=== PATIENT | male | born 1955 | race Caucasian/White ===

== ENCOUNTER 2021-11-21 04:33 | Inpatient (IN) | payer OTHER ==
[~2021-11-21] VITALS: Ht 180.3 cm; Wt 125.2 kg
--- NOTE | 2021-11-21 04:33 | NUR ---
66 YR OLD MALE WITH COMPLAINT OF RIGHT SIDED WEAKNESS AFTER FALLING AT HOME AND BEING UNABLE TO STAND. PT IS ALERT AND ORIENTED AND REPORTS HISTORY OF HTN, AND DM II. PT DENIES ANY SOB OR CHEST PAIN. 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 MD AREVALO AT THE BEDSIDE. CODE STROKE INITIATED
[2021-11-21 04:37] VITALS: BP_SYST 192
[2021-11-21] MEDS ORDERED: NACL 0.9% 1,000 ML IV ONE (04:45)
[2021-11-21] MEDS ORDERED: hydrALAZINE HCL 20 MG/ML VIAL IVP ONE (04:45)
[2021-11-21 04:52] LABS: BASOPHILS # (AUTO) 0.1 K/uL (0.0-0.2); BASOPHILS % (AUTO) 2.4 % (0.0-2.0); EOSINOPHILS # (AUTO) 0.1 K/uL (0.0-0.4); EOSINOPHILS % (AUTO) 1.5 % (0.0-4.0); HEMATOCRIT 50.9 % (36-54); HEMOGLOBIN 17.1 g/dL (14.0-18.0); LYMPHOCYTES % (AUTO) 18.7 % (20.5-51.5); MEAN CORPUSCULAR HEMOGLOBIN 30 pg (27-31); MEAN CORPUSCULAR HGB CONC 34 % (32-36); MEAN CORPUSCULAR VOLUME 89 fL (79.0-98.0); MONOCYTES # (AUTO) 0.3 K/uL (0.0-1.0); MONOCYTES % (AUTO) 5.5 % (1.7-9.3); NEUTROPHILS # (AUTO) 3.9 K/uL (1.8-7.7); NEUTROPHILS % (AUTO) 71.9 % (40.0-70.0); PLATELET COUNT (AUTO) 215 K/uL (130-430); RED BLOOD CELL COUNT(AUTO) 5.74 MIL/uL (4.2-6.2); RED CELL DISTRIBUTION WIDTH 13.4 % (9.0-15.0); WHITE BLOOD COUNT (AUTO) 5.4 K/uL (4.8-10.8)
[2021-11-21 05:09] LABS: ANION GAP 7 (5-15); CALCIUM 9.1 mg/dL (8.4-11.0); CHLORIDE 104 mmol/L (98-107); CREATININE 1.21 mg/dL (0.55-1.30); GLUCOSE 239 mg/dL (70-99); POTASSIUM 3.2 mmol/L (3.5-5.1); SODIUM SERUM 139 mmol/L (136-145); UREA NITROGEN, BLOOD 17 mg/dL (8-21)
[2021-11-21 05:10] LABS: GFR AFRICAN AMERICAN 77 mL/min (>90)
[2021-11-21 05:11] LABS: INR 0.9 (0.80-1.20); PROTHROMBIN TIME 9.4 SECS (9.5-12.5)
--- NOTE | 2021-11-21 05:16 | NUR ---
TELEMED VIDEO MONITOR PLACED AT THE BEDSIDE
[2021-11-21 05:18] LABS: ALANINE AMINOTRANSFERASE 45 U/L (12-78); ASPARTATE AMINOTRANSFERASE 26 U/L (10-37); TOTAL BILIRUBIN 0.4 mg/dL (0.0-1.0)
--- NOTE | 2021-11-21 05:24 | NUR ---
PT REPORTS BEING PRESCRIBED MEDICATIONS FOR THN AND DM II. PT REPORTS NOT TAKING THE MEDICATIONS FOR MORE THAN ONE YEAR. MADE AWARE
[2021-11-21] MEDS ORDERED: KCL 20 mEq in 100 mL (PREMIX) 100 ML IV ONE (05:30)
--- NOTE | 2021-11-21 06:06 | NUR ---
PT URINE SENT TO LAB
[2021-11-21] MEDS ORDERED: IOHEXOL 350 mgI/mL, 150 ML INFUS..BTL IV ONE (06:14)
[2021-11-21 06:19] LABS: BILIRUBIN,URINE NEGATIVE (NEGATIVE); BLOOD, URINE NEGATIVE (NEGATIVE); CLARITY/URINE CLEAR (CLEAR); COLOR,URINE YELLOW (YELLOW); GLUCOSE,URINE 3+ (NEGATIVE); KETONES,URINE NEGATIVE (NEGATIVE); LEUKOCYTE ESTERASE ,URINE NEGATIVE (NEGATIVE); NITRITE, URINE NEGATIVE (NEGATIVE); PROTEIN URINE NEGATIVE (NEGATIVE)
--- NOTE | 2021-11-21 06:24 | NUR ---
PT CONSENT SIGNED AND OBTAINED FOR CT SCAN WITH CONTRAST
[2021-11-21 06:30] LABS: BARBITURATE, URINE NEGATIVE (NEG <=200); BENZODIAZEPINE, URINE NEGATIVE (NEG <=150); CANNABINOID, URINE NEGATIVE (NEG <=50); COCAINE, URINE NEGATIVE (NEG <=150); METHAMPHETAMINES SCREEN,URINE NEGATIVE (NEG <=500); OPIATE, URINE NEGATIVE (NEG <=100); PHENCYCLIDINE SCREEN,URINE NEGATIVE (NEG <=25); UR TRICYCLIC ANTIDEPRESSANTS NEGATIVE (NEG <=300); URINE AMPHETAMINE NEGATIVE (NEG <=500); URINE METHADONE NEGATIVE (NEG <=200); URINE OXYCODONE SCREEN NEGATIVE (NEG <=100); URINE PROPOXYPHENE SCREEN NEGATIVE (NEG <=300)
--- NOTE | 2021-11-21 06:41 | NUR ---
NEUOROLOGIST TELEMED EVALUATION AND PT INTERVIEW COMPLETED WITH RN AT THE BEDSIDE
--- NOTE | 2021-11-21 06:59 | NUR ---
COVID SWAB OBTAINED AND SENT TO LAB FOR PT ADMISSION
--- NOTE | 2021-11-21 07:26 | NUR ---
REPORT RECEIVED FROM TODD AHUJA FOR CONTINUING CARE
--- NOTE | 2021-11-21 07:30 | NUR ---
PT IS AWAKE IN BED, AAOX4, VSS, NO DISTRESS NOTED.
[2021-11-21] MEDS ORDERED: ASPIRIN 325 MG TABLET PO ONE (07:45)
[2021-11-21] MEDS ORDERED: cloNIDine HCL 0.1 MG TABLET PO PRN (08:30)
--- NOTE | 2021-11-21 08:35 | NUR ---
Patient will be admitted to care of . Admitted to TELE unit. Will go to room 118A. Belongings list completed. Complete and up to date summary report printed. SBAR report to be given at bedside with opportunity for questions.
--- NOTE | 2021-11-21 08:35 | NUR ---
Admit bed requested Patient will be admitted to care of . Admitted to TELE unit. Diagnosis TIA Inpatient (Yes or No) YES Observation (Yes or No) NO Orientation concerns or request close to nursing station (Yes or No) NO Covid Status NEGATIVE On vent or bipap NO Isolation requirements NO Needs a sitter NO From Home (Yes or if No enter name of facility) YES Requires Dialysis (Yes or No) NO Med Rec Completed (Yes of No) YES
--- NOTE | 2021-11-21 08:35 | NUR ---
Note bridgett in EDM - 11/21/21 at 0948 by [email or web address] Patient will be admitted to care of DR. THOMPSON. Admitted to [] unit. Will go to room []. Belongings list completed. Complete and up to date summary report printed. SBAR report to be given at bedside with opportunity for questions.
[2021-11-21] MEDS ORDERED: amLODIPine BESYLATE 10 MG TABLET PO SCH (09:00)
[2021-11-21] MEDS: CARVEDILOL 6.25 MG TABLET (COREG) PO SCH ×2 (09:00→21:58)
--- NOTE | 2021-11-21 10:17 | NUR ---
Received patient in bed resting comfortably, AAOX4, able to express needs. No c/o pain or discomfort. Respirations are non-labored. Skin is clean, warm and dry to touch. IV access is patent, dry and intact, No s/sx of redness or swelling observed. Bed is locked in lowest position, call light in reach. Nurse will continue care and monitor of changes in status.
[2021-11-21] MEDS ORDERED: DEXTROSE 50%-WATER 50 ML DISP.SYRIN IVP PRN (10:30)
[2021-11-21] MEDS ORDERED: D5W 1,000 ML IV PRN (10:30)
[2021-11-21] MEDS ORDERED: GLUCOSE (DEXTROSE) ORAL GEL -Adults PO PRN (10:30)
[2021-11-21 12:28] VITALS: BP_SYST 104
--- NOTE | 2021-11-21 12:42 | NUR ---
patient in bed resting comfortably, No c/o pain or discomfort. Respirations are non-labored. Skin is clean, warm and dry to touch. IV access is patent, dry and intact, No s/sx of redness or swelling observed. Bed is locked in lowest position, call light in reach. Nurse will continue care and monitor of changes in status.
--- NOTE | 2021-11-21 18:42 | NUR ---
Patient in bed resting comfortably, No c/o pain or discomfort. Respirations are non-labored. Skin is clean, warm and dry to touch. IV access is patent, dry and intact, No s/sx of redness or swelling observed. Bed is locked in lowest position, call light in reach. Nurse will endorse patient to rn night nurse for continued care.
[2021-11-21] MEDS: metFORMIN HCL 500 MG TABLET PO SCH (19:30)
[2021-11-21 20:00] VITALS: BP_SYST 150
--- NOTE | 2021-11-21 21:30 | NUR ---
Paged Dr. Garza
--- NOTE | 2021-11-21 21:39 | NUR ---
Dr. Garza/New Order Spoke with Dr. Garza, received new order for [facility] with readback and confirmation.
[2021-11-21] MEDS: ENOXAPARIN SODIUM 40 MG/0.4 ML SYRINGE SUBCUT SCH (22:03)
[2021-11-21] MEDS: INSULIN REGULAR, HUMAN 100 UNITS/ML, 10 ML VIAL (humuLIN R) SUBCUT PRN (22:17)
[2021-11-22 00:30] VITALS: BP_SYST 146
--- NOTE | 2021-11-22 04:43 | NUR ---
Consultation Paged Reason for consult: TIA Was consult called: Y Person who was notified: Dr. Silva text message Consulting Physician: Chacorta Pinon Ordering Physician: Dr. Garza
[2021-11-22 06:47] LABS: BASOPHILS # (AUTO) 0.1 K/uL (0.0-0.2); BASOPHILS % (AUTO) 0.8 % (0.0-2.0); EOSINOPHILS # (AUTO) 0.1 K/uL (0.0-0.4); EOSINOPHILS % (AUTO) 2.1 % (0.0-4.0); HEMATOCRIT 45.1 % (36-54); HEMOGLOBIN 15.4 g/dL (14.0-18.0); LYMPHOCYTES # (AUTO) 1.6 K/uL (1.0-5.5); LYMPHOCYTES % (AUTO) 25.1 % (20.5-51.5); MEAN CORPUSCULAR HEMOGLOBIN 30 pg (27-31); MEAN CORPUSCULAR HGB CONC 34 % (32-36); MEAN CORPUSCULAR VOLUME 89 fL (79.0-98.0); MONOCYTES # (AUTO) 0.7 K/uL (0.0-1.0); MONOCYTES % (AUTO) 10.1 % (1.7-9.3); NEUTROPHILS % (AUTO) 61.9 % (40.0-70.0); PLATELET COUNT (AUTO) 201 K/uL (130-430); RED BLOOD CELL COUNT(AUTO) 5.09 MIL/uL (4.2-6.2); RED CELL DISTRIBUTION WIDTH 13.2 % (9.0-15.0); WHITE BLOOD COUNT (AUTO) 6.5 K/uL (4.8-10.8)
--- NOTE | 2021-11-22 07:30 | NUR ---
Closing Patient resting in bed, unlabored breathing on room air. No complaint of pain. NIHSS of 4, consistent with documentation in ER. Speech clear and appropriate, facial movements symmetrical. Patient reported numbness to right side slightly improved this morning but still present. Sensation present but decreased to right side. Able to move right arm and leg with some drift - drifted downward but did not hit bed during NIH stroke scale. Given 2 units insulin before breakfast for blood sugar 194. Metformin held due to recent IV contrast administration. Call light in reach, fall and safety precautions maintained.
[2021-11-22] MEDS: INSULIN REGULAR, HUMAN 100 UNITS/ML, 10 ML VIAL (humuLIN R) SUBCUT PRN ×4 (07:44→21:15)
[2021-11-22 08:00] VITALS: BP_SYST 167
[2021-11-22 08:00] LABS: CREATININE 1.08 mg/dL (0.55-1.30); POTASSIUM 3.5 mmol/L (3.5-5.1)
[2021-11-22] MEDS: metFORMIN HCL 500 MG TABLET PO SCH ×2 (08:00→18:00)
--- NOTE | 2021-11-22 08:00 | NUR ---
Initial Notes Patient is awake, alert and oriented. Patient in bed, vital signs taken. Patient states that he feels better than yesterday, slight tingling of right side upper and lower extremity. Has good range of motion. Denies any chest pain or distress. Safety precautions in place and call light within reach.
[2021-11-22] MEDS: ASPIRIN 81 MG TAB.CHEW PO SCH (08:39)
[2021-11-22] MEDS: LISINOPRIL 10 MG TABLET (PRINIVIL) PO SCH (08:40)
[2021-11-22] MEDS: CARVEDILOL 6.25 MG TABLET (COREG) PO SCH ×2 (08:41→21:12)
[2021-11-22 10:30] VITALS: BP_SYST 165
[2021-11-22 11:31] VITALS: BP_SYST 157
--- NOTE | 2021-11-22 12:00 | NUR ---
Notes Patient in bed, resting, using his phone. Patient denies any pain or distress. Safety precautions in place and call light within reach.
[2021-11-22 14:43] VITALS: BP_SYST 112
[2021-11-22] MEDS ORDERED: CLOPIDOGREL BISULFATE 75 MG TABLET PO ONE (16:00)
--- NOTE | 2021-11-22 16:03 | NUR ---
SPEECH THERAPY CONSULT WAS CALLED TO [facility], RE: SWALLOWING EVAL. SPOKE TO CAROL.
--- NOTE | 2021-11-22 16:52 | NUR ---
PT WAS SEEN FOR DYSPHAGIA. PT WAS ABLE TO SAFELY SWALLOW REGULAR DIET WITH THIN LIQUID. RECOMMENDATION REGULAR DIET WITH THIN LIQUID
--- NOTE | 2021-11-22 18:40 | NUR ---
Closing Notes Patient is in bed, eating dinner, at a High Alaniz's position. No complains of pain or distress. Family at bedside. Call light within reach and safety precautions in place.
[2021-11-22 20:10] VITALS: BP_SYST 133
[2021-11-22] MEDS: ENOXAPARIN SODIUM 40 MG/0.4 ML SYRINGE SUBCUT SCH (21:10)
[2021-11-23 00:43] VITALS: BP_SYST 132
[2021-11-23] MEDS: INSULIN REGULAR, HUMAN 100 UNITS/ML, 10 ML VIAL (humuLIN R) SUBCUT PRN ×4 (06:40→20:54)
[2021-11-23 07:03] LABS: BASOPHILS % (AUTO) 0.8 % (0.0-2.0); EOSINOPHILS # (AUTO) 0.2 K/uL (0.0-0.4); EOSINOPHILS % (AUTO) 2.6 % (0.0-4.0); HEMATOCRIT 45.3 % (36-54); HEMOGLOBIN 15.3 g/dL (14.0-18.0); LYMPHOCYTES # (AUTO) 1.7 K/uL (1.0-5.5); MEAN CORPUSCULAR HEMOGLOBIN 30 pg (27-31); MEAN CORPUSCULAR HGB CONC 34 % (32-36); MEAN CORPUSCULAR VOLUME 89 fL (79.0-98.0); MONOCYTES # (AUTO) 0.5 K/uL (0.0-1.0); MONOCYTES % (AUTO) 8.9 % (1.7-9.3); NEUTROPHILS # (AUTO) 3.6 K/uL (1.8-7.7); NEUTROPHILS % (AUTO) 59.7 % (40.0-70.0); PLATELET COUNT (AUTO) 195 K/uL (130-430); RED BLOOD CELL COUNT(AUTO) 5.11 MIL/uL (4.2-6.2); RED CELL DISTRIBUTION WIDTH 13.2 % (9.0-15.0)
--- NOTE | 2021-11-23 07:10 | NUR ---
HANDOFF WITH TODD ANDRADE. LAVERNE BRADY RN
[2021-11-23 07:40] LABS: CALCIUM 8.2 mg/dL (8.4-11.0); CREATININE 1.07 mg/dL (0.55-1.30); POTASSIUM 3.6 mmol/L (3.5-5.1)
[2021-11-23 08:00] VITALS: BP_SYST 159
[2021-11-23] MEDS: metFORMIN HCL 500 MG TABLET PO SCH ×2 (08:00→17:02)
--- NOTE | 2021-11-23 08:00 | NUR ---
INITIAL NOTE Patient in bed, awake, alert, and oriented. Vital signs obtained. No pain or distress claimed. Patient aware to call for assistance. Safety precautions in place and call light near patient.
[2021-11-23] MEDS: ASPIRIN 81 MG TAB.CHEW PO SCH (08:34)
[2021-11-23] MEDS: LISINOPRIL 10 MG TABLET (PRINIVIL) PO SCH (08:36)
[2021-11-23] MEDS: CLOPIDOGREL BISULFATE 75 MG TABLET PO SCH (08:36)
[2021-11-23] MEDS: CARVEDILOL 6.25 MG TABLET (COREG) PO SCH ×2 (08:50→20:49)
[2021-11-23 12:00] VITALS: BP_SYST 144
--- NOTE | 2021-11-23 12:00 | NUR ---
Patient states feels good. Numbness and tingling of the RUE and RLE same as yesterday and this plastic products sales representative. Vital signs obtained, pt. states no pain or distress. Safety precautions in place. Call light within reach.
[2021-11-23 16:00] VITALS: BP_SYST 140
--- NOTE | 2021-11-23 16:00 | NUR ---
Notes Patient is in bed, watching TV. Family is at bedside. Reports no pain. No distress noted. Call light within reach and safety precautions in place.
--- NOTE | 2021-11-23 18:40 | NUR ---
Closing Notes Patient is in bed, finished eating dinner. Patient is comfortable. No complaints of pain or distress noted. Safety precautions in place and call light within reach.
[2021-11-23] MEDS: ENOXAPARIN SODIUM 40 MG/0.4 ML SYRINGE SUBCUT SCH (20:49)
[2021-11-23 20:50] VITALS: BP_SYST 182
[2021-11-23 22:36] VITALS: BP_SYST 159
[2021-11-24 00:18] VITALS: BP_SYST 148
[2021-11-24] MEDS: INSULIN REGULAR, HUMAN 100 UNITS/ML, 10 ML VIAL (humuLIN R) SUBCUT PRN ×4 (06:08→20:39)
--- NOTE | 2021-11-24 06:56 | NUR ---
Handoff with TODD Ramirez. Yg Quiles RN
[2021-11-24 08:30] VITALS: BP_SYST 144
--- NOTE | 2021-11-24 08:30 | NUR ---
Opening Note Patient is awake laying in bed watching TV. No apparent distress. Patient denies pain. Vitals as charted. Call light within reach. Safety and fall precautions in place. All needs met.
[2021-11-24] MEDS: ASPIRIN 81 MG TAB.CHEW PO SCH (09:42)
[2021-11-24] MEDS: CARVEDILOL 6.25 MG TABLET (COREG) PO SCH ×2 (09:43→20:25)
[2021-11-24] MEDS: metFORMIN HCL 500 MG TABLET PO SCH ×2 (09:43→18:07)
[2021-11-24] MEDS: LISINOPRIL 10 MG TABLET (PRINIVIL) PO SCH (09:44)
[2021-11-24] MEDS: CLOPIDOGREL BISULFATE 75 MG TABLET PO SCH (09:44)
[2021-11-24 12:24] VITALS: BP_SYST 151
--- NOTE | 2021-11-24 13:40 | NUR ---
NOTE Patient is awake, laying in bed watching a baseball game on his phone. Plugged in patient cell phone senior radiation protection technician and placed within patient. Provided fresh ice water. Call light within reach. Safety and fall precautions in place. All needs met.
[2021-11-24 16:19] VITALS: BP_SYST 146
--- NOTE | 2021-11-24 18:31 | NUR ---
Closing Notes Patient is awake, eating dinner. No apparent distress noted. Patient denies pain. Call light within reach. Safety and fall precautions in place. Will endorse care to security shift supervisor RN.
[2021-11-24 20:04] VITALS: BP_SYST 128
[2021-11-24] MEDS: ENOXAPARIN SODIUM 40 MG/0.4 ML SYRINGE SUBCUT SCH (20:26)
[2021-11-25] VITALS (8 sets, daily range): BP systolic 126–161
[2021-11-25] MEDS: INSULIN REGULAR, HUMAN 100 UNITS/ML, 10 ML VIAL (humuLIN R) SUBCUT PRN ×4 (06:50→20:27)
--- NOTE | 2021-11-25 07:16 | NUR ---
Handoff with TODD Ramirez. Yg Quiles RN
--- NOTE | 2021-11-25 08:30 | NUR ---
Opening Note Patient laying in bed watching television on his phone. A/O x4. Vitals as charted. No apparent distress noted. Patient denies pain. Call light within reach. Safety and fall precautions in place. All needs met.
[2021-11-25] MEDS: metFORMIN HCL 500 MG TABLET PO SCH ×2 (08:36→17:24)
[2021-11-25] MEDS: ASPIRIN 81 MG TAB.CHEW PO SCH (08:36)
[2021-11-25] MEDS: CLOPIDOGREL BISULFATE 75 MG TABLET PO SCH (08:36)
[2021-11-25] MEDS: CARVEDILOL 6.25 MG TABLET (COREG) PO SCH ×2 (08:37→20:19)
[2021-11-25] MEDS: LISINOPRIL 10 MG TABLET (PRINIVIL) PO SCH (08:37)
--- NOTE | 2021-11-25 09:55 | NUR ---
Discharge Planning: DCP faxed pt referral to [facility], [facility], [facility]. DCP spoke to Mallorie at [facility] P#[phone] F#[phone] auth will be given to accepting facility. DCP to follow up Addendum: 11/25/21 at 1615 by Teresa Morris DP DCP followed up with pt referral to [facility] [phone] pt accepted to 7. DCP made Mallorie at [facility] [phone], of accepting [facility]. For transport auth#[id number] . Addendum: 11/25/21 at 1640 by Teresa Morris DP [facility] [phone] pt accepted to [facility]. DCP arrange transport with [facility] [phone] BLS WILL CALL auth#[id number]. Patient packet taken to nurse station.
--- NOTE | 2021-11-25 11:12 | NUR ---
MRI: TO MRI VIA WHEELCHAIR.STABLE.
--- NOTE | 2021-11-25 11:40 | NUR ---
BACK FROM MRI: PATIENT BACK FROM MRI VIA WHEELCHAIR IN STABLE CONDITION.
--- NOTE | 2021-11-25 12:35 | NUR ---
CM: Informed pt and his cousin/Rahul at bedside that [facility] facility that accept him. They chose [facility]. Rahul stated his family was there and liked the facility, he recommended for the pt as well. The pt agreed with [facility] , dr Garza made aware. The pt may be dc once cleared by Neuro and has the MRI result. -- TODD Gonzalez made aware.
--- NOTE | 2021-11-25 13:14 | NUR ---
Neuro Page Critical Result Spoke with Yayo from Radiology. He provided critical MRI result of stroke. I paged Dr. Silva.
--- NOTE | 2021-11-25 13:20 | NUR ---
Dr. Silva Called Back Spoke with Dr. Silva, provided critical MRI result of stroke. Dr. Silva asked if patient is on aspirin, I stated yes, patient is on 81mg. No new orders given.
--- NOTE | 2021-11-25 18:40 | NUR ---
NEURO CLEARANCE: DR FUENTES WENT TO PATIENT'S ROOM AND DISCUSSED WITH PATIENT MRI RESULTS.CLEARED TO TRANSFER TO [facility] ORDERED.
--- NOTE | 2021-11-25 18:41 | NUR ---
Closing Notes Patient is in bed awake, watching television on his phone. No apparent distress noted. Call light within reach. Safety and fall precautions in place. All needs met. Will endorse care to retail shift supervisor RN.
--- NOTE | 2021-11-25 19:15 | NUR ---
OPENING NOTES Patient resting in bed - no s/s pain or distress noted. Respirations even and unlabored - head of bed elevated. IV site patent - no s/s redness, infection, or infiltration. Bed locked and in lowest position. Call light within reach - bed alarm on.
[2021-11-25] MEDS: ENOXAPARIN SODIUM 40 MG/0.4 ML SYRINGE SUBCUT SCH (20:21)
--- NOTE | 2021-11-25 21:00 | NUR ---
Approximately at this time unit assembler Huong informs me that [facility] to come pickup patient for transfer to [place] at 2300
--- NOTE | 2021-11-25 22:00 | NUR ---
At this time [facility] calls me to say they will pickup patient ETA [id number]. Report already given to TODD Chao at [facility] at this time to notify them of possible pickup at latest 2299.
--- NOTE | 2021-11-25 23:12 | NUR ---
Patient escorted out by two executive services administrator stable at this time. Transport via gurney to [facility] - report already given.
== END 2021-11-25 23:31 | DRG 65 ==
LOC: SED 04:33 → STU 08:28
PROVIDERS: ADMIT Family Medicine; ATTEND Family Medicine
DX: I63.9 Cerebral infarction, unspecified (principal); G81.91 Hemiplegia, unspecified affecting right dominant side; E87.6 Hypokalemia; E11.9 Type 2 diabetes mellitus without complications; I10 Essential (primary) hypertension; Z20.822 Contact with and (suspected) exposure to COVID-19
CPT/HCPCS: 36415; 70450-TC; 70496; 70498; 70551; 71045; 76376; 80048; 80053; 80061; 80307; 81003; 82962; 83036; 83735; 84484; 85025; 85610-TC; 85730-TC; 86886; 86900; 86901; 92610-GN; 93880; 96374; 97116-GP; 97530-GP; 99291; G0378; J0360; J1650; J1815; J3480; Q9967

== ENCOUNTER 2023-05-17 16:41 | Inpatient (IN) | payer OTHER ==
[~2023-05-17] VITALS: Ht 182.9 cm; Wt 124.3 kg
[2023-05-17 16:52] VITALS: BP_SYST 166; PULSE 77; RESP 16; TEMP 98.2; O2SAT 98
[2023-05-17] MEDS ORDERED: ACETAMINOPHEN 500 MG TABLET PO ONE (17:15)
[2023-05-17 19:09] LABS: BASOPHILS % (AUTO) 0.7 % (0.0-2.0); EOSINOPHILS # (AUTO) 0.1 K/uL (0.0-0.4); HEMATOCRIT 45.6 % (36-54); HEMOGLOBIN 14.9 g/dL (14.0-18.0); LYMPHOCYTES # (AUTO) 1.3 K/uL (1.0-5.5); LYMPHOCYTES % (AUTO) 20.1 % (20.5-51.5); MEAN CORPUSCULAR HEMOGLOBIN 30 pg (27-31); MEAN CORPUSCULAR HGB CONC 33 % (32-36); MEAN CORPUSCULAR VOLUME 91 fL (79.0-98.0); MONOCYTES # (AUTO) 0.6 K/uL (0.0-1.0); MONOCYTES % (AUTO) 9.6 % (1.7-9.3); NEUTROPHILS # (AUTO) 4.2 K/uL (1.8-7.7); NEUTROPHILS % (AUTO) 67.6 % (40.0-70.0); PLATELET COUNT (AUTO) 217 K/uL (130-430); RED BLOOD CELL COUNT(AUTO) 5.03 MIL/uL (4.2-6.2); RED CELL DISTRIBUTION WIDTH 13.4 % (9.0-15.0); WHITE BLOOD COUNT (AUTO) 6.2 K/uL (4.8-10.8)
[2023-05-17 19:25] LABS: ANION GAP 9 (5-15); CALCIUM 8.7 mg/dL (8.4-11.0); CARBON DIOXIDE 28 mmol/L (23-29); CHLORIDE 107 mmol/L (98-107); CREATININE 1.21 mg/dL (0.55-1.30); GFR AFRICAN AMERICAN 77 mL/min (>90); GLUCOSE 100 mg/dL (74-106); POTASSIUM 3.8 mmol/L (3.5-5.1); SODIUM SERUM 144 mmol/L (136-145); UREA NITROGEN, BLOOD 22 mg/dL (8-21)
[2023-05-17 19:26] LABS: PROTHROMBIN TIME 10.3 SECS (9.5-12.5)
[2023-05-17 19:31] LABS: GFR NON AFRICAN-AMERICAN 63 mL/min (>90)
[2023-05-17 19:32] LABS: ALANINE AMINOTRANSFERASE 31 U/L (12-78); ALBUMIN 3.8 g/dL (3.4-4.8); ASPARTATE AMINOTRANSFERASE 15 U/L (10-37); TOTAL BILIRUBIN 0.6 mg/dL (0.0-1.0); TOTAL PROTEIN, SERUM 7.3 g/dL (6.4-8.3)
[2023-05-18 01:34] LABS: BILIRUBIN,URINE NEGATIVE (NEGATIVE); BLOOD, URINE NEGATIVE (NEGATIVE); CLARITY/URINE CLOUDY (CLEAR); COLOR,URINE YELLOW (YELLOW); GLUCOSE,URINE NEGATIVE (NEGATIVE); KETONES,URINE NEGATIVE (NEGATIVE); LEUKOCYTE ESTERASE ,URINE 2+ (NEGATIVE); NITRITE, URINE NEGATIVE (NEGATIVE); PROTEIN URINE NEGATIVE (NEGATIVE); UROBILINOGEN,URINE 0.2 (0.2-1.0)
[2023-05-18] MEDS ORDERED: hydrALAZINE HCL 20 MG/ML VIAL IVP PRN (01:45)
[2023-05-18] MEDS ORDERED: ASPIRIN 81 MG TAB.CHEW PO ONE (01:45)
[2023-05-18 01:57] LABS: BACTERIA,URINE MODERATE /HPF (None Seen); RBC,URINE 0-3 /HPF (0-3); WBC,URINE 50-80 /HPF (0-3)
[2023-05-18] MEDS ORDERED: cefTRIAXone 1 GM IVPB PREMIX 50 ML IV ONE (02:15)
[2023-05-18] MEDS ORDERED: ONDANSETRON HCL 4 MG/2 ML VIAL IVP PRN (03:00)
[2023-05-18] MEDS ORDERED: ACETAMINOPHEN 500 MG TABLET PO PRN (03:00)
[2023-05-18] MEDS ORDERED: HYDROcodone/ACETAMIN 5-325 MG TAB (NORCO/ VICODIN) PO PRN (03:00)
[2023-05-18 08:00] VITALS: BP_SYST 166; PULSE 90; RESP 18; TEMP 97.8; O2SAT 98
[2023-05-18 08:07] VITALS: BP_SYST 166; PULSE 97; RESP 17; TEMP 97.8; O2SAT 98
[2023-05-18] MEDS: LISINOPRIL 10 MG TABLET (PRINIVIL) PO SCH (08:43)
[2023-05-18] MEDS: ASPIRIN 81 MG TAB.CHEW PO SCH (08:43)
[2023-05-18 11:30] VITALS: BP_SYST 167; PULSE 83; RESP 19; TEMP 98.4; O2SAT 96
[2023-05-18] MEDS: cefTRIAXone 1 GM in D5W 50 ML IV SCH (14:24)
[2023-05-18 17:30] VITALS: BP_SYST 159; PULSE 83; RESP 18; TEMP 98.9; O2SAT 98
[2023-05-18 20:08] VITALS: BP_SYST 160; PULSE 78; RESP 16; TEMP 97.6; O2SAT 95
[2023-05-19 00:40] VITALS: BP_SYST 118; PULSE 68; RESP 17; TEMP 98.1; O2SAT 100
[2023-05-19 04:59] LABS: BASOPHILS # (AUTO) 0.1 K/uL (0.0-0.2); BASOPHILS % (AUTO) 0.8 % (0.0-2.0); EOSINOPHILS # (AUTO) 0.2 K/uL (0.0-0.4); EOSINOPHILS % (AUTO) 3.1 % (0.0-4.0); HEMATOCRIT 42.8 % (36-54); HEMOGLOBIN 13.8 g/dL (14.0-18.0); LYMPHOCYTES # (AUTO) 1.8 K/uL (1.0-5.5); LYMPHOCYTES % (AUTO) 27.1 % (20.5-51.5); MEAN CORPUSCULAR HEMOGLOBIN 29 pg (27-31); MEAN CORPUSCULAR HGB CONC 32 % (32-36); MEAN CORPUSCULAR VOLUME 90 fL (79.0-98.0); MONOCYTES # (AUTO) 0.8 K/uL (0.0-1.0); MONOCYTES % (AUTO) 12.1 % (1.7-9.3); NEUTROPHILS # (AUTO) 3.7 K/uL (1.8-7.7); NEUTROPHILS % (AUTO) 56.9 % (40.0-70.0); PLATELET COUNT (AUTO) 197 K/uL (130-430); RED BLOOD CELL COUNT(AUTO) 4.76 MIL/uL (4.2-6.2); RED CELL DISTRIBUTION WIDTH 13.2 % (9.0-15.0); WHITE BLOOD COUNT (AUTO) 6.5 K/uL (4.8-10.8)
[2023-05-19 05:46] LABS: CALCIUM 8.1 mg/dL (8.4-11.0); CREATININE 1.12 mg/dL (0.55-1.30); POTASSIUM 3.6 mmol/L (3.5-5.1); TOTAL BILIRUBIN 0.5 mg/dL (0.0-1.0); TOTAL PROTEIN, SERUM 5.9 g/dL (6.4-8.3)
[2023-05-19 08:00] VITALS: BP_SYST 147; PULSE 73; RESP 18; TEMP 97.1; O2SAT 96
[2023-05-19] MEDS: LISINOPRIL 10 MG TABLET (PRINIVIL) PO SCH (10:07)
[2023-05-19] MEDS: ASPIRIN 81 MG TAB.CHEW PO SCH (10:07)
[2023-05-19 12:40] VITALS: BP_SYST 150; PULSE 87; RESP 17; TEMP 97.1; O2SAT 96
[2023-05-19] MEDS ORDERED: LISI10TA29 PO (13:08)
[2023-05-19] MEDS ORDERED: ASA81 PO (13:08)
[2023-05-19] MEDS ORDERED: CIPR500T5 PO (13:08)
[2023-05-19] MEDS: cefTRIAXone 1 GM in D5W 50 ML IV SCH (14:06)
[2023-05-19 15:46] VITALS: BP_SYST 152; PULSE 63; RESP 18; TEMP 97; O2SAT 97
[2023-05-19 15:48] VITALS: BP_SYST 152; PULSE 63; RESP 18; TEMP 97; O2SAT 97
== END 2023-05-19 16:30 | disposition home health service (06) | DRG 69 ==
LOC: SED 16:41 → STU 05-18 01:39
PROVIDERS: ADMIT Family Medicine; ATTEND Family Medicine
DX: G45.9 Transient cerebral ischemic attack, unspecified (principal); N39.0 Urinary tract infection, site not specified; I69.351 Hemiplegia and hemiparesis following cerebral infarction affecting right dominant side; I10 Essential (primary) hypertension; E11.9 Type 2 diabetes mellitus without complications; E78.5 Hyperlipidemia, unspecified; E66.9 Obesity, unspecified; Z68.37 Body mass index [BMI] 37.0-37.9, adult
CPT/HCPCS: 36415; 70450-TC; 71045; 72192-TC; 76376; 80053; 80061; 81000; 81001; 84484; 85025; 85610-TC; 87040; 87086; 93005; 93306; 97116-GP; 97530-GP; 99285; G0378; J0360; J0696; J7060

== ENCOUNTER 2023-06-06 01:36 | Emergency (ER) | payer OTHER ==
[~2023-06-06] VITALS: Ht 180.3 cm; Wt 124.7 kg
[~2023-06-06 01:36] MED LIST: ASA81 PO; CIPR500T5 PO; LISI10TA29 PO
[2023-06-06 01:41] VITALS: BP_SYST 142; PULSE 69; RESP 15; TEMP 98; O2SAT 98
[2023-06-06 02:26] LABS: BASOPHILS # (AUTO) 0.1 K/uL (0.0-0.2); BASOPHILS % (AUTO) 0.8 % (0.0-2.0); EOSINOPHILS # (AUTO) 0.2 K/uL (0.0-0.4); EOSINOPHILS % (AUTO) 2.7 % (0.0-4.0); HEMATOCRIT 44.4 % (36-54); HEMOGLOBIN 14.7 g/dL (14.0-18.0); LYMPHOCYTES # (AUTO) 1.5 K/uL (1.0-5.5); LYMPHOCYTES % (AUTO) 20.6 % (20.5-51.5); MEAN CORPUSCULAR HEMOGLOBIN 30 pg (27-31); MEAN CORPUSCULAR HGB CONC 33 % (32-36); MEAN CORPUSCULAR VOLUME 90 fL (79.0-98.0); MONOCYTES # (AUTO) 0.8 K/uL (0.0-1.0); MONOCYTES % (AUTO) 10.7 % (1.7-9.3); NEUTROPHILS # (AUTO) 4.6 K/uL (1.8-7.7); NEUTROPHILS % (AUTO) 65.2 % (40.0-70.0); PLATELET COUNT (AUTO) 247 K/uL (130-430); RED BLOOD CELL COUNT(AUTO) 4.95 MIL/uL (4.2-6.2); WHITE BLOOD COUNT (AUTO) 7.1 K/uL (4.8-10.8)
[2023-06-06 02:29] LABS: ANION GAP 10 (5-15); CALCIUM 8.6 mg/dL (8.4-11.0); CARBON DIOXIDE 28 mmol/L (23-29); CHLORIDE 103 mmol/L (98-107); CREATININE 1.42 mg/dL (0.55-1.30); GFR AFRICAN AMERICAN 64 mL/min (>90); GLUCOSE 134 mg/dL (74-106); POTASSIUM 3.7 mmol/L (3.5-5.1); SODIUM SERUM 141 mmol/L (136-145); UREA NITROGEN, BLOOD 21 mg/dL (8-21)
[2023-06-06 02:37] LABS: ALANINE AMINOTRANSFERASE 26 U/L (12-78); ALBUMIN 3.6 g/dL (3.4-4.8); ASPARTATE AMINOTRANSFERASE 13 U/L (10-37); TOTAL BILIRUBIN 0.4 mg/dL (0.0-1.0); TOTAL PROTEIN, SERUM 6.9 g/dL (6.4-8.3)
[2023-06-06 02:44] LABS: GFR NON AFRICAN-AMERICAN 53 mL/min (>90)
[2023-06-06] MEDS ORDERED: CLON0.1T PO (05:25)
[2023-06-06 07:03] VITALS: BP_SYST 129; PULSE 71; RESP 16; TEMP 98; O2SAT 98
== END 2023-06-06 07:00 | disposition home or self-care (01) ==
LOC: SED 01:36
DX: M62.81 Muscle weakness (generalized) (principal); E11.9 Type 2 diabetes mellitus without complications; I10 Essential (primary) hypertension; Z79.899 Other long term (current) drug therapy
CPT/HCPCS: 36415; 70450-TC; 76376; 80053; 83880; 84484; 85025; 85379; 99284